=== PATIENT | female | born 1945 | race Caucasian/White ===

== ENCOUNTER 2016-12-14 01:11 | Inpatient (IN) | payer MEDICAID, MEDICARE ==
[~2016-12-14] VITALS: Ht 180.3 cm; Wt 131.5 kg
[2016-12-14 01:11] VITALS: BP 93/55; PULSE 76; RESP 18; TEMP 97.9; O2SAT 98
--- NOTE | 2016-12-14 01:11 | NUR ---
Patient to ER bed 6 to gown for evaluation. Side rails up. Report given to SG Verduzco.
--- NOTE | 2016-12-14 01:20 | NUR ---
Pt BIB EMS from [facility] for uncontrollable vaginal pain, pt stated she takes 2mg Dilaudid PO q4 hr for pain control, last dose at 0000, pain 04/17. Pt reported h/o radical vulvectomy on 11/13/16, vulvar cancer, and chronic pain. A&Ox4, denies SOB or chestpain, denies N/V/D. 16 Fr Goff catheter present upon arrival, pt stated she has the goff placed 3 weeks ago. Cellulitis noted at bilateral ankles. Appeared obese. Will continue to monitor
--- NOTE | 2016-12-14 01:21 | NUR ---
Pt states recent vulvectomy. Pt has excoriated, reddened, volvular area. Pt has goff in place, states "it feels like it is leaking and irritating my vagina". Pt's surgical wound extends toward rectal area.
--- NOTE | 2016-12-14 01:28 | NUR ---
MD camilo at bedside examining pt
[2016-12-14] MEDS ORDERED: metroNIDAZOLE 500 mg/NS 100 ML IV ONE (01:45)
[2016-12-14] MEDS ORDERED: NACL 0.9% 1,000 ML IV ONE (01:45)
[2016-12-14] MEDS ORDERED: HYDROmorphone 1 MG INJ. 1 MG/ML AMPUL IVP ONE (01:45)
[2016-12-14] MEDS ORDERED: HYDR2TAB7 PO (01:48)
[2016-12-14] MEDS ORDERED: CARV3.1246 PO ×2 (01:48→02:05)
[2016-12-14] MEDS ORDERED: MAGN400O4 PO (01:48)
[2016-12-14] MEDS ORDERED: BISA10SU8 RC (01:48)
[2016-12-14] MEDS ORDERED: DEXT1CAP3 PO (01:48)
[2016-12-14] MEDS ORDERED: POLY15DR56 OP (01:48)
--- NOTE | 2016-12-14 01:50 | NUR ---
# 16 FR Goff catheter with use of sterile technique. Immediate return of 20 cc yellow urine noted. Bedside drainage bag placed below level of bladder. Urine sample collected and sent to lab. Pt tolerated procedure well. Patient arrived with goff in place, changed due to standard of practice prior to admission.
[2016-12-14] MEDS ORDERED: BISACODYL 10 MG/SUPPOSITORY RC PRN (02:00)
[2016-12-14] MEDS ORDERED: NITROGLYCERIN 0.4 MG TAB.SUBL SL PRN (02:00)
[2016-12-14] MEDS ORDERED: TEARS ARTIFICIAL 15 ML DROPS OP PRN ×2 (02:00→07:55)
[2016-12-14] MEDS ORDERED: MILK OF MAGNESIA 30 ML UDC PO PRN (02:00)
[2016-12-14] MEDS ORDERED: IBUP-1969 PO (02:05)
[2016-12-14] MEDS ORDERED: DOCU-144 PO (02:05)
[2016-12-14] MEDS ORDERED: ASPI-1063 PO (02:05)
[2016-12-14] MEDS ORDERED: HYDR-1189 PO (02:05)
[2016-12-14] MEDS ORDERED: MULT-1117 PO (02:05)
[2016-12-14] MEDS ORDERED: DULO60CA41 PO (02:05)
[2016-12-14] MEDS ORDERED: GABA-531 PO (02:05)
[2016-12-14] MEDS ORDERED: CRAN450C PO (02:05)
[2016-12-14] MEDS ORDERED: LORA-258 PO (02:05)
[2016-12-14] MEDS ORDERED: TOLT1TAB2 PO (02:05)
[2016-12-14] MEDS ORDERED: VALS80TA25 PO (02:05)
[2016-12-14] MEDS ORDERED: NITR0.4T6 SL (02:05)
[2016-12-14] MEDS ORDERED: PRO40 PO (02:05)
--- NOTE | 2016-12-14 02:11 | NUR ---
Medication reconciliation completed with information provided by facility. Any prior medication reconciliation on file was reviewed and corrected.
[2016-12-14 02:20] LABS: BASOPHILS % (AUTO) 0.7 % (0.0-2.0); EOSINOPHILS # (AUTO) 0.5 K/uL (0.0-0.4); HEMOGLOBIN 9.4 g/dL (12.0-16.0); MEAN CORPUSCULAR HEMOGLOBIN 24 pg (27-31); MEAN CORPUSCULAR HGB CONC 32 % (32-36); MEAN CORPUSCULAR VOLUME 76 fL (79.0-98.0); MONOCYTES # (AUTO) 0.8 K/uL (0.0-1.0); MONOCYTES % (AUTO) 12.8 % (1.7-9.3); NEUTROPHILS # (AUTO) 2.9 K/uL (1.8-7.7); NEUTROPHILS % (AUTO) 46.5 % (40.0-70.0); PLATELET COUNT (AUTO) 191 K/uL (130-430); RED BLOOD CELL COUNT(AUTO) 3.84 MIL/uL (4.2-6.2); RED CELL DISTRIBUTION WIDTH 15.5 % (9.0-15.0); WHITE BLOOD COUNT (AUTO) 6.2 K/uL (4.8-10.8)
[2016-12-14 02:36] LABS: ANION GAP 1 (5-15); CHLORIDE 96 mmol/L (98-107); CREATININE 0.96 mg/dL (0.55-1.30); GLUCOSE 113 mg/dL (70-99); POTASSIUM 4.3 mmol/L (3.5-5.1); SODIUM SERUM 131 mmol/L (136-145); UREA NITROGEN, BLOOD 16 mg/dL (8-21)
[2016-12-14 02:41] LABS: ALANINE AMINOTRANSFERASE 58 U/L (12-78); ALBUMIN 2.7 g/dL (3.4-4.8); ASPARTATE AMINOTRANSFERASE 52 U/L (10-37); TOTAL BILIRUBIN 0.3 mg/dL (0.0-1.0); TOTAL PROTEIN, SERUM 7.5 g/dL (6.4-8.3)
[2016-12-14 02:47] LABS: BILIRUBIN,URINE NEGATIVE (NEGATIVE); BLOOD, URINE 1+ (NEGATIVE); CLARITY/URINE HAZY (CLEAR); COLOR,URINE YELLOW (YELLOW); GLUCOSE,URINE NEGATIVE (NEGATIVE); KETONES,URINE NEGATIVE (NEGATIVE); LEUKOCYTE ESTERASE ,URINE 3+ (NEGATIVE); NITRITE, URINE NEGATIVE (NEGATIVE); PROTEIN URINE TRACE (NEGATIVE); UROBILINOGEN,URINE 0.2 (0.2-1.0)
[2016-12-14 03:01] LABS: BACTERIA,URINE MODERATE /HPF (None Seen); MUCUS,URINE 1+ /LPF (None Seen)
--- NOTE | 2016-12-14 03:50 | NUR ---
ADMISSION: The patient, YANNI MERAZ, 71 y/o, F admitted by SRI MENSAH DO, was given written information regarding hospital policies, unit procedures and contact persons.
--- NOTE | 2016-12-14 03:55 | NUR ---
Patient will be admitted to care of . Admitted to Med Surg unit. Will go to room 111-A. Belongings list completed. Summary report printed. Report given to Yary RN.
[2016-12-14 04:00] VITALS: BP 119/56; PULSE 81; RESP 18; RESP 20; TEMP 97.6; O2SAT 94
[2016-12-14] MEDS: HYDROmorphone 2 MG/ML VIAL IVP PRN ×3 (05:10→14:17)
[2016-12-14] MEDS: LORazepam 1 MG TABLET PO PRN (05:10)
--- NOTE | 2016-12-14 06:30 | NUR ---
CLOSING NOTES NO S/S OF DISTRESS NOTED. WILL ENDORSE CARE TO DAY SHIFT NURSE. FALL PRECAUTIONS IN PLACE, CALL LIGHT WITHIN REACH.
--- NOTE | 2016-12-14 08:00 | NUR ---
INITIAL NOTE PT LAYING IN BED, RESTING, EASY TO AROUSE, ALERT AND ORIENTED X3, NO S/S OF DISTRESS, COMPLAINS OF PAIN 03/17 WILL FOLLOW UP WITH PAIN MEDICATION, VSS, IV TO LAC PATENT AND INTACT WITH FLUIDS INFUSING AT ORDERED RATE, NO S/S OF INFILTRATION NOTED, PT REORIENTED TO USE OF CALL LIGHT AND IT IS PLACED WITHIN REACH, SAFETY MEASURES IN PLACE, BED IN LOW POSITION AND LOCKED, WILL CONTINUE TO MONITOR.
[2016-12-14] MEDS ORDERED: [UNRECOGNIZED DRUG - OTHER] PO SCH (09:00)
[2016-12-14] MEDS ORDERED: QUINIDINE PO SCH (09:00)
[2016-12-14] MEDS ORDERED: DEXTROMETHORPHAN PO SCH (09:00)
[2016-12-14] MEDS ORDERED: NON-FORMULARY MEDICATION (Cranberry Fruit Concentrate (Cranberry) 450 MG) PO SCH (09:00)
[2016-12-14] MEDS: MULTIVITAMINS TAB 1 TABLET PO SCH ×2 (09:00→09:14)
[2016-12-14] MEDS: ASPIRIN 81 MG TABLET(ECOTRIN) PO SCH (09:14)
[2016-12-14] MEDS: PANTOPRAZOLE SODIUM 40 MG TAB PO SCH (09:14)
[2016-12-14] MEDS: DOCUSATE SODIUM 100 MG CAPSULE PO SCH ×2 (09:14→20:56)
[2016-12-14] MEDS: DULoxetine HCL 30 MG CAPSULE.DR (CYMBALTA) PO SCH (09:15)
[2016-12-14] MEDS: VALSARTAN 80 MG TABLET (DIOVAN) PO SCH (09:15)
[2016-12-14] MEDS: GABAPENTIN 300 MG CAPSULE PO SCH ×3 (09:16→20:55)
[2016-12-14] MEDS: CARVEDILOL 3.125 MG TABLET (COREG) PO SCH ×2 (09:16→20:56)
[2016-12-14] MEDS ORDERED: ACETAMINOPHEN 325 MG TABLET PO PRN (09:30)
[2016-12-14] MEDS ORDERED: DOCUSATE SODIUM 100 MG CAPSULE PO PRN (09:30)
[2016-12-14] MEDS ORDERED: POTASSIUM CHLORIDE 10 MEQ TAB.PRT.SR PO PRN (09:30)
[2016-12-14] MEDS ORDERED: MAGNESIUM SULFATE 50 ML IV PRN (09:30)
[2016-12-14] MEDS: NACL 0.9% 1,000 ML IV SCH ×2 (09:30→14:23)
[2016-12-14] MEDS ORDERED: ONDANSETRON HCL 4 MG/2 ML VIAL IVP PRN (09:30)
--- NOTE | 2016-12-14 09:30 | NUR ---
DR MENSAH AT BEDSIDE, ASSESSED PATIENT, PLAN OF CARE DISCUSSED, PATIENT VERBALIZED UNDERSTANDING, NEW ORDERS RECEIVED AND CARRIED OUT.
[2016-12-14 09:34] VITALS: BP 112/65; PULSE 79; RESP 18; TEMP 97.1; O2SAT 95
[2016-12-14] MEDS: OXYBUTYNIN CHLORIDE 5 MG TABLET PO SCH ×2 (10:51→20:56)
[2016-12-14] MEDS: LORazepam 2 MG/ML VIAL IVP PRN ×2 (10:59→20:55)
[2016-12-14] MEDS ORDERED: cefTRIAXone 1 GM in D5W 50 ML IV SCH (11:00)
--- NOTE | 2016-12-14 11:00 | NUR ---
PT NOTED TO BE ANXIOUS, REQUESTING ATIVAN IF IT IS TIME, ADMINISTERED ANXIETY MEDICATION, PT TOLERATED WELL, SAFETY MEASURES IN PLACE, BED ALARM ON, BED IN LOW POSITION AND LOCKED, WILL FOLLOW UP
[2016-12-14 12:00] VITALS: BP_SYST 101; BP_SYST 94; BP_DIAS 50; BP_DIAS 58; PULSE 68; PULSE 74; RESP 18; RESP 22; TEMP 96.9; TEMP 97.3; O2SAT 95; O2SAT 97
--- NOTE | 2016-12-14 12:00 | NUR ---
P.T. NOTES PATIENT REFUSED TO GET UP AND PARTICIPATE WITH P.T. IN SPITE OF SEVERAL ENCOURAGEMENTS GIVEN AND EXPLAINED THE BENEFITS OF THE OUT OF BED ACTIVITIES. STATES SHE IS TOO TIRED AND SLEEPY AND WOULD LIKE TO SLEEP INSTEAD. PATIENT STATES TO COME BACK @ 11:30-NOON & TO TRY IF SHE IS ABLE. INFORMED HER NURSE OF HER INITIAL REFUSAL. THIS CLINICIAN CAME BACK AT 12:00PM BUT PATIENT WAS SEEN ASLEEP, SNORING IN HER BED AND WAS HARD TO BE AWAKEN WHEN ATTEMPTED AGAIN. PLAN: WE'LL TRY AGAIN ON NEXT P.T. VISIT. PVEX2
--- NOTE | 2016-12-14 14:17 | NUR ---
PAIN MANAGEMENT PT COMPLAINT OF PAIN 04/17 LOCATED IN HER VAGINA, ADMINISTERED PAIN MEDICATION, PT TOLERATED WELL, NO RESTING, NO S/S OF DISTRESS, STATES PAIN IS NOW AT A TOLERABLE LEVEL, SAFETY MEASURES IN PLACE, WILL FOLLOW UP
--- NOTE | 2016-12-14 16:30 | NUR ---
ROUNDS PT SITTING UP IN BED, RESTING, STATES IT WAS THE FIRST DAY SHE WAS ABLE TO REST WELL, NEEDS ATTENDED TO, SAFETY MEASURES IN PLACE, WILL FOLLOW UP
[2016-12-14 18:15] VITALS: BP 128/78; PULSE 88; RESP 18; TEMP 98.2
--- NOTE | 2016-12-14 18:54 | NUR ---
CLOSING NOTE PT LAYING IN BED, NO S/S OF DISTRESS OR COMPLAINT OF PAIN AT THIS TIME, ALL NEEDS MET DURING SHIFT, IV TO LAC INTACT AND INFUSING FLUIDS AT ORDERED RATE, N S/S OF INFILTRATION NOTED, SAFETY MEASURES IN PLACE, CALL LIGHT WITHIN REACH, BED IN LOW POSITION AND LOCKED, WILL ENDORSE CARE TO FOLLOW IN SHIFT.
--- NOTE | 2016-12-14 20:00 | NUR ---
OPENING NOTE PATIENT RESTING COMFORTABLY IN SEMI-ALMODOVAR'S. NO SIGNS OR SYMPTOMS OF DISTRESS NOTED. IV INFUSING. BED IN LOWEST POSITION, BED ALARM ON, CALL LIGHT WITHIN REACH. WILL CONTINUE TO MONITOR.
[2016-12-14 20:22] VITALS: BP 111/67; PULSE 76; RESP 20; TEMP 98.4; O2SAT 95
[2016-12-14] MEDS: MORPHINE 2 MG/ML INJ. SYRINGE IVP PRN (20:55)
[2016-12-14] MEDS: HEPARIN SODIUM,PORCINE 5000 UNITS/ML VIAL SUBCUT SCH (20:58)
[2016-12-14] MEDS ORDERED: ZOLPIDEM TARTRATE 5 MG TABLET PO PRN (21:00)
--- NOTE | 2016-12-14 22:00 | NUR ---
ROUNDS PATIENT SLEEPING COMFORTABLY. VISIBLE RISE AND FALL OF CHEST NOTED. NO SIGNS OR SYMPTOMS OF ACUTE DISTRESS NOTED. IV INFUSING, NO SIGNS OF INFILTRATION. BED IN LOWEST POSITION, BED ALARM ON, CALL LIGHT WITHIN REACH. WILL CONTINUE TO MONITOR.
[2016-12-15 00:14] VITALS: BP 118/70; PULSE 68; RESP 20; TEMP 98.8; O2SAT 98
--- NOTE | 2016-12-15 02:00 | NUR ---
ROUNDS PATIENT IS ASLEEP. VISIBLE RISE AND FALL OF CHEST NOTED. NO ACUTE SIGNS OR SYMPTOMS OF DISTRESS NOTED. IV INFUSING, NO SIGNS OF INFILTRATION. BED IN LOWEST POSITION, BED ALARM ON, CALL LIGHT WITHIN REACH. WILL CONTINUE TO MONITOR.
[2016-12-15] MEDS: HYDROmorphone 2 MG/ML VIAL IVP PRN ×5 (02:52→17:31)
--- NOTE | 2016-12-15 04:00 | NUR ---
ROUNDS PATIENT SLEEPING WITH VISIBLE RISE AND FALL OF CHES. NO SIGNS OR SYMPTOMS OF ACUTE DISTRESS NOTED. BED IN LOWEST POSITION, BED ALARM ON, CALL LIGHT WITHIN REACH. WILL CONTINUE TO MONITOR.
[2016-12-15 05:10] VITALS: BP 116/73; PULSE 83; RESP 18; TEMP 98.6; O2SAT 97
--- NOTE | 2016-12-15 06:15 | NUR ---
ROUNDS PATIENT AWAKE AND STATING SHE IS IN PAIN. PATIENT RECEIVED MEDICATION PER ORDERS. WILL REASSESS. IV INFUSING, NO SIGNS OF INFILTRATION. BED IN LOWEST POSITION, BED ALARM ON, CALL LIGHT WITHIN REACH. WILL CONTINUE TO MONITOR.
--- NOTE | 2016-12-15 06:35 | NUR ---
CLOSING NOTES PATIENT IS RESTING COMFORTABLY. IV INFUSING. NO ACUTE SIGNS OR SYMPTOMS OF DISTRESS NOTED. BED IN LOWEST POSITION, BED ALARM ON, CALL LIGHT WITHIN REACH. WILL ENDORSE CARE TO DAY SHIFT NURSE.
[2016-12-15 07:20] LABS: BASOPHILS % (AUTO) 0.5 % (0.0-2.0); EOSINOPHILS # (AUTO) 0.3 K/uL (0.0-0.4); EOSINOPHILS % (AUTO) 7.5 % (0.0-4.0); HEMATOCRIT 29.1 % (36-48); HEMOGLOBIN 8.9 g/dL (12.0-16.0); LYMPHOCYTES # (AUTO) 1.3 K/uL (1.0-5.5); LYMPHOCYTES % (AUTO) 28.5 % (20.5-51.5); MEAN CORPUSCULAR HEMOGLOBIN 23 pg (27-31); MEAN CORPUSCULAR HGB CONC 31 % (32-36); MEAN CORPUSCULAR VOLUME 76 fL (79.0-98.0); MONOCYTES # (AUTO) 0.5 K/uL (0.0-1.0); NEUTROPHILS # (AUTO) 2.4 K/uL (1.8-7.7); NEUTROPHILS % (AUTO) 53.5 % (40.0-70.0); PLATELET COUNT (AUTO) 177 K/uL (130-430); RED BLOOD CELL COUNT(AUTO) 3.81 MIL/uL (4.2-6.2); RED CELL DISTRIBUTION WIDTH 15.3 % (9.0-15.0); WHITE BLOOD COUNT (AUTO) 4.5 K/uL (4.8-10.8)
--- NOTE | 2016-12-15 07:20 | NUR ---
initial notes: pt awake, alert and oriented. i.v. access patent but keep on beeping due to pt frequent folding her hand. call light within reach. report received at bedside.
[2016-12-15 07:31] LABS: ANION GAP 0 (5-15); CALCIUM 8.7 mg/dL (8.4-11.0); CHLORIDE 97 mmol/L (98-107); CREATININE 0.86 mg/dL (0.55-1.30); GLUCOSE 100 mg/dL (70-99); SODIUM SERUM 132 mmol/L (136-145); UREA NITROGEN, BLOOD 14 mg/dL (8-21)
[2016-12-15 08:00] VITALS: BP 104/60; PULSE 78; RESP 16; TEMP 96.6; O2SAT 96
[2016-12-15] MEDS ORDERED: cefTRIAXone 1 GM in D5W 50 ML IV SCH (09:00)
[2016-12-15] MEDS: GABAPENTIN 300 MG CAPSULE PO SCH ×3 (09:11→21:23)
[2016-12-15] MEDS: DULoxetine HCL 30 MG CAPSULE.DR (CYMBALTA) PO SCH (09:11)
[2016-12-15] MEDS: ASPIRIN 81 MG TABLET(ECOTRIN) PO SCH (09:11)
[2016-12-15] MEDS: CARVEDILOL 3.125 MG TABLET (COREG) PO SCH ×2 (09:12→21:24)
[2016-12-15] MEDS: VALSARTAN 80 MG TABLET (DIOVAN) PO SCH (09:13)
[2016-12-15] MEDS: DOCUSATE SODIUM 100 MG CAPSULE PO SCH ×2 (09:13→21:23)
[2016-12-15] MEDS: MULTIVITAMINS TAB 1 TABLET PO SCH (09:13)
[2016-12-15] MEDS: PANTOPRAZOLE SODIUM 40 MG TAB PO SCH (09:13)
[2016-12-15] MEDS: HEPARIN SODIUM,PORCINE 5000 UNITS/ML VIAL SUBCUT SCH ×2 (09:17→21:23)
[2016-12-15] MEDS: MORPHINE 2 MG/ML INJ. SYRINGE IVP PRN (09:23)
[2016-12-15] MEDS: OXYBUTYNIN CHLORIDE 5 MG TABLET PO SCH ×2 (10:30→21:00)
[2016-12-15] MEDS: NACL 0.9% 1,000 ML IV SCH ×2 (11:20→18:51)
--- NOTE | 2016-12-15 11:42 | NUR ---
rounds: pt sleeping. stable.
[2016-12-15 12:49] VITALS: BP 115/54; PULSE 76; RESP 16; TEMP 97.4; O2SAT 97
--- NOTE | 2016-12-15 14:00 | NUR ---
MRSA: pt positive for MRSA nares and urine. Informed pt will be placed in isolation and verbalized understanding.
[2016-12-15] MEDS: LORazepam 2 MG/ML VIAL IVP PRN ×2 (14:40→19:50)
[2016-12-15 17:19] VITALS: BP 114/54; PULSE 80; RESP 18; TEMP 99; O2SAT 94
--- NOTE | 2016-12-15 17:30 | NUR ---
rounds: pt eating dinner. no distress noted.
[2016-12-15] MEDS: MUPIROCIN 2% TOPICAL OINTMENT 22 GM TP SCH ×2 (17:37→21:00)
[2016-12-15] MEDS: VANCOMYCIN HCL 1,500 MG in NS 250 ML IV SCH (17:38)
--- NOTE | 2016-12-15 18:00 | NUR ---
rounds: pt eating dinner with feeding assist with COMPUTER SYSTEMS ENGINEER. no distress noted. Addendum: 12/15/16 at 1825 by wGen Whipple RN wrong chart.
--- NOTE | 2016-12-15 18:45 | NUR ---
closing notes: pt on bed resting. stable. needs attended. call light within reach. report will be given to production shift supervisor.
--- NOTE | 2016-12-15 19:20 | NUR ---
OPENING NOTES REPORT RECEIVED FROM DAY SHIFT NURSE. PATIENT IS SITTING UP WACTCHING TELEVISION, IN GOOD SPIRITS. IV IS PATENT AND INFUSING VANCOMYOCIN. NO S/S OF DISTRESS OR ADVERSE REACTION. PATIENT TOLERATING WELL. LUNGS SOUNDS CRACKLES, WILL NOTIFY DR. MENSAH. BED IN LOWEST POSITION, BED ALARM ON, CALL LIGHT WITHIN REACH.WILL CONTINUE TO MONITOR FREQUENTLY.
[2016-12-15 19:41] VITALS: BP 124/94; PULSE 84; RESP 24; TEMP 97.4; O2SAT 95
--- NOTE | 2016-12-15 20:35 | NUR ---
CALLED DR MENSAH CALLED AND SPOKE TO DR MENSAH TO ADVISE THAT CRACKLES WERE HEARD IN PATIENTS LUNGS AND O2 SATURATION WAS DECREASING. ORDERED D/C FLUIDS, SALINE LOCK IV, AND 40 MG OF LASIX IV ONE TIME.
--- NOTE | 2016-12-15 20:39 | NUR ---
FLUIDS D/C PER TELEPHONE ORDER DR. MENSAH.
[2016-12-15] MEDS ORDERED: FUROSEMIDE 40 MG/4 ML VIAL IVP ONE (20:45)
[2016-12-16 00:20] VITALS: BP 118/72; PULSE 79; RESP 18; TEMP 98.4; O2SAT 94
--- NOTE | 2016-12-16 00:44 | NUR ---
ROUNDS PATIENT IS SLEEPING IN SEMI-ALMODOVAR'S POSITION, WITH VISIBLE RISE AND FALL OF CHEST NOTED. NO SIGNS OR SYMPTOMS OF ACUTE DISTRESS NOTED. IV PATENT AND INFUSING. BED IN LOWEST POSITION, BED ALARM ON, CALL LIGHT WITHIN REACH. WILL CONTINUE TO MONITOR.
--- NOTE | 2016-12-16 03:41 | NUR ---
ROUNDS PATIENT IS SLEEPING COMFORTABLY WITH VISIBLE RISE AND FALL OF CHEST NOTED. NO SIGNS OR SYMPTOMS OF ACUTE DISTRESS NOTED. BREATHING UNLABORED AND EVEN. BED IN LOWEST POSITION, BED ALARM ON, CALL LIGHT WITHIN REACH. WILL CONTINUE TO MONITOR.
[2016-12-16 04:42] VITALS: BP 148/68; PULSE 90; RESP 16; TEMP 99; O2SAT 90
[2016-12-16] MEDS: VANCOMYCIN HCL 1,500 MG in NS 250 ML IV SCH ×2 (05:00→15:31)
[2016-12-16] MEDS: MORPHINE 2 MG/ML INJ. SYRINGE IVP PRN (05:04)
--- NOTE | 2016-12-16 05:07 | NUR ---
ROUNDS AT BEDSIDE WITH PATIENT COMPLAINING OF PAIN. MEDICATED PATIENT PER ORDERS. ASSISTED IN BATHING PATIENT WITH WAITER/WAITRESS TOURIST CLASS. LUNGS SOUNDS ARE NOW CLEAR. IV RUNNING ANTIBIOTICS, NO SIGNS OF INFILTRATION. FALL PRECAUTIONS IN PLACE. WILL CONTINUE TO MONITOR.
[2016-12-16 07:44] LABS: BASOPHILS % (AUTO) 0.4 % (0.0-2.0); EOSINOPHILS # (AUTO) 0.2 K/uL (0.0-0.4); EOSINOPHILS % (AUTO) 3.9 % (0.0-4.0); HEMATOCRIT 27.2 % (36-48); HEMOGLOBIN 8.6 g/dL (12.0-16.0); LYMPHOCYTES # (AUTO) 1.4 K/uL (1.0-5.5); LYMPHOCYTES % (AUTO) 27.1 % (20.5-51.5); MEAN CORPUSCULAR HEMOGLOBIN 24 pg (27-31); MEAN CORPUSCULAR HGB CONC 32 % (32-36); MEAN CORPUSCULAR VOLUME 75 fL (79.0-98.0); MONOCYTES # (AUTO) 0.6 K/uL (0.0-1.0); MONOCYTES % (AUTO) 11.6 % (1.7-9.3); PLATELET COUNT (AUTO) 157 K/uL (130-430); RED BLOOD CELL COUNT(AUTO) 3.62 MIL/uL (4.2-6.2); WHITE BLOOD COUNT (AUTO) 5.2 K/uL (4.8-10.8)
--- NOTE | 2016-12-16 07:57 | NUR ---
CLOSING NOTES REPORT GIVEN AT BESIDE TO DAY SHIFT NURSE. PATIENT IS SLEEPING COMFORTABLY WITH VISIBLE RISE AND FALL OF CHEST NOTED. NO ACUTE S/S OF DISTRESS AT THIS TIME. LUNGS SOUNDS ARE NOW CLEAR. IV RUNNING ANTIBIOTICS, NO SIGNS OF INFILTRATION AT SITE. FALL PRECAUTIONS IN PLACE. WILL ENDORSE CARE TO DAY SHIFT NURSE.
--- NOTE | 2016-12-16 08:00 | NUR ---
OPENING NOTES REPORT RECEIVED AT BEDSIDE. PT ALERT AND ORIENTED X4. VS ARE STABLE AND LUNGS ARE CLEAR IN ALL LOBES, BUT SHE STATES SHE IS ANXIOUS AND REQUESTED HER PRN ANTIANXIETY MED. WILL CONTINUE TO MONITOR
[2016-12-16 08:08] LABS: ANION GAP 1 (5-15); CALCIUM 8.6 mg/dL (8.4-11.0); CHLORIDE 98 mmol/L (98-107); CREATININE 0.91 mg/dL (0.55-1.30); GLUCOSE 110 mg/dL (70-99); POTASSIUM 4.6 mmol/L (3.5-5.1); SODIUM SERUM 134 mmol/L (136-145); UREA NITROGEN, BLOOD 15 mg/dL (8-21)
[2016-12-16] MEDS: HYDROmorphone 2 MG/ML VIAL IVP PRN ×3 (08:58→19:48)
[2016-12-16] MEDS: GABAPENTIN 300 MG CAPSULE PO SCH ×3 (09:02→21:18)
[2016-12-16] MEDS: VALSARTAN 80 MG TABLET (DIOVAN) PO SCH (09:03)
[2016-12-16] MEDS: MULTIVITAMINS TAB 1 TABLET PO SCH (09:04)
[2016-12-16] MEDS: ASPIRIN 81 MG TABLET(ECOTRIN) PO SCH (09:04)
[2016-12-16] MEDS: DOCUSATE SODIUM 100 MG CAPSULE PO SCH ×2 (09:05→21:18)
[2016-12-16] MEDS: CARVEDILOL 3.125 MG TABLET (COREG) PO SCH ×2 (09:05→21:19)
[2016-12-16] MEDS: PANTOPRAZOLE SODIUM 40 MG TAB PO SCH (09:05)
[2016-12-16] MEDS: DULoxetine HCL 30 MG CAPSULE.DR (CYMBALTA) PO SCH (09:06)
[2016-12-16] MEDS: LORazepam 1 MG TABLET PO PRN ×2 (09:06→21:20)
[2016-12-16] MEDS: MUPIROCIN 2% TOPICAL OINTMENT 22 GM TP SCH ×2 (09:10→22:25)
[2016-12-16] MEDS: OXYBUTYNIN CHLORIDE 5 MG TABLET PO SCH ×2 (09:21→22:27)
[2016-12-16] MEDS: HEPARIN SODIUM,PORCINE 5000 UNITS/ML VIAL SUBCUT SCH ×2 (09:27→21:21)
--- NOTE | 2016-12-16 09:37 | NUR ---
Nutrition Update Benji Scale 12 noted. Pt admitted for UTI. Diet: regular BMI: 40.6 kg/m2 RD to follow per nutrition care standards.
--- NOTE | 2016-12-16 10:00 | NUR ---
ROUNDS PT RESTING IN BED AND IS COMPLAINING OF PAIN. PRN ANALGESICS ADMINISTERED, WILL FOLLOW UP ON EFFECTIVENESS OF TREATMENT. BED IN LOWEST POSITION, CALL LIGHT WITHIN REACH, AND BED ALARM SET
[2016-12-16 12:00] VITALS: BP 104/52; PULSE 83; RESP 18; TEMP 99.7; O2SAT 94
--- NOTE | 2016-12-16 12:00 | NUR ---
PT SLEEPING IN BED. BED IN LOWEST POSITION, CALL LIGHT WITHIN REACH, AND BED ALARM SET
[2016-12-16 12:40] VITALS: Ht 180.3 cm; Wt 131.5 kg
--- NOTE | 2016-12-16 14:00 | NUR ---
ROUNDS PT STILL SLEEPING AND APPEARS COMFORTABLE
[2016-12-16] MEDS: LORazepam 2 MG/ML VIAL IVP PRN ×2 (14:08→21:35)
[2016-12-16] MEDS: NACL 0.9% 1,000 ML IV SCH (14:08)
[2016-12-16 16:00] VITALS: BP 136/96; PULSE 76; RESP 18; TEMP 97.8; O2SAT 92
--- NOTE | 2016-12-16 16:00 | NUR ---
ROUNDS PT IS AWAKE AND LISTENING TO MUSIC. I'VE NOTICED SHE IS SLOW TO ORIENT BUT IS A&O X 4 ONCE I TALK TO HER FOR A FEW MINUTES.
--- NOTE | 2016-12-16 19:00 | NUR ---
CLOSING NOTE PT CURLED UP IN BED AND IS COMPLAINING OF PAIN. REPORT ENDORSED AT BEDSIDE, AND NIGHT NURSE WILL FOLLOW-UP WITH PRN ANALGESICS
[2016-12-16 19:48] VITALS: BP 114/74; PULSE 93; RESP 22; TEMP 99.4; O2SAT 93
--- NOTE | 2016-12-16 20:15 | NUR ---
Initial note A/O x 3, forgetful at times. No SOB, no chest pain, c/o general body ache, Dilaudid IVP given, pain decreased to 3/10. 2L O2 via NC. Clear lung sounds, active bowel sounds. Skin warm to touch, IV at L AC, patent, free of infection or infiltration. Contact isolation for MRSA-nares. F/C in place, about 100 ml clear yellow urine in the collecting bag. Needed one to two persons assisted for position change. Call light within reach, bed alarm on, bed at lowest position, will continue to monitor patient.
--- NOTE | 2016-12-16 22:15 | NUR ---
Rounds Resting in bed. No SOB, no chest pain, no grimacing. Ativan IVP given earlier. 2L O2 via NC. IV at L AC, patent, free of infection or infiltration. Contact isolation for MRSA-nares. F/C in place. Call light within reach, bed alarm on, bed at lowest position, will continue to monitor patient.
[2016-12-17] VITALS: BP 131/63; PULSE 89; RESP 18; TEMP 98; O2SAT 94
--- NOTE | 2016-12-17 00:25 | NUR ---
Rounds Resting/sleeping in bed. No SOB, no chest pain, no grimacing. 2L O2 via NC. IV at L AC, patent, free of infection or infiltration. Contact isolation for MRSA-nares. F/C in place. Call light within reach, bed alarm on, bed at lowest position, will continue to monitor patient.
--- NOTE | 2016-12-17 02:00 | NUR ---
Rounds Resting/sleeping in bed. No SOB, no chest pain, no grimacing. 2L O2 via NC. F/C in place. Call light within reach, bed alarm on, bed at lowest position, will continue to monitor patient.
[2016-12-17 04:00] VITALS: BP 117/53; PULSE 84; RESP 17; TEMP 98; O2SAT 95
[2016-12-17] MEDS: VANCOMYCIN HCL 1,500 MG in NS 250 ML IV SCH ×2 (04:03→16:00)
--- NOTE | 2016-12-17 04:30 | NUR ---
Rounds and IV reinsertion Resting/sleeping in bed. No SOB, no chest pain, no grimacing. 2L O2 via NC. F/C in place. IV at L AC dislodged. Started a new IV at R hand #22 with good blood return. Patient tolerated well, Vanco IV ongoing. DC old IV, IV catheter intact, no s/s of infection or infiltration. Call light within reach, bed alarm on, bed at lowest position, will continue to monitor patient.
--- NOTE | 2016-12-17 06:45 | NUR ---
Closing note Resting/sleeping in bed. No SOB, no chest pain, no grimacing. 2L O2 via NC. F/C in place. Call light within reach, bed alarm on, bed at lowest position, will give report to incoming nurse.
[2016-12-17 07:16] LABS: BASOPHILS % (AUTO) 0.2 % (0.0-2.0); EOSINOPHILS # (AUTO) 0.2 K/uL (0.0-0.4); EOSINOPHILS % (AUTO) 3.4 % (0.0-4.0); HEMATOCRIT 26.7 % (36-48); HEMOGLOBIN 8.2 g/dL (12.0-16.0); LYMPHOCYTES # (AUTO) 1.3 K/uL (1.0-5.5); LYMPHOCYTES % (AUTO) 23.4 % (20.5-51.5); MEAN CORPUSCULAR HEMOGLOBIN 24 pg (27-31); MEAN CORPUSCULAR HGB CONC 31 % (32-36); MEAN CORPUSCULAR VOLUME 76 fL (79.0-98.0); MONOCYTES # (AUTO) 0.6 K/uL (0.0-1.0); MONOCYTES % (AUTO) 11.4 % (1.7-9.3); NEUTROPHILS # (AUTO) 3.5 K/uL (1.8-7.7); NEUTROPHILS % (AUTO) 61.6 % (40.0-70.0); PLATELET COUNT (AUTO) 163 K/uL (130-430); RED CELL DISTRIBUTION WIDTH 15.8 % (9.0-15.0); WHITE BLOOD COUNT (AUTO) 5.6 K/uL (4.8-10.8)
--- NOTE | 2016-12-17 07:30 | NUR ---
OPENING NOTES REPORT RECEIVED AT BEDSIDE BY TYREL. PT A$O X 3 (COULD NOT REMEMBER THE DAY OF THE WEEK) VS STABLE, BUT PATIENT IS ANXIOUS AND IN PAIN. IV PATENT, DRESSING DRY AND INTACT. I WILL ADMINISTER PRN ANTI-ANXIETY AND ANALGESIC GILLIAN
[2016-12-17 07:38] LABS: ANION GAP -2 (5-15); CALCIUM 8.4 mg/dL (8.4-11.0); CHLORIDE 98 mmol/L (98-107); CREATININE 0.84 mg/dL (0.55-1.30); GLUCOSE 117 mg/dL (70-99); POTASSIUM 4.3 mmol/L (3.5-5.1); SODIUM SERUM 130 mmol/L (136-145); UREA NITROGEN, BLOOD 18 mg/dL (8-21)
[2016-12-17] MEDS: HYDROmorphone 2 MG/ML VIAL IVP PRN ×3 (08:59→19:52)
[2016-12-17] MEDS: LORazepam 2 MG/ML VIAL IVP PRN (08:59)
[2016-12-17] MEDS: HEPARIN SODIUM,PORCINE 5000 UNITS/ML VIAL SUBCUT SCH ×2 (09:00→21:34)
[2016-12-17] MEDS: MULTIVITAMINS TAB 1 TABLET PO SCH (09:00)
[2016-12-17] MEDS: PANTOPRAZOLE SODIUM 40 MG TAB PO SCH (09:11)
[2016-12-17] MEDS: GABAPENTIN 300 MG CAPSULE PO SCH ×3 (09:11→21:31)
[2016-12-17] MEDS: CARVEDILOL 3.125 MG TABLET (COREG) PO SCH ×2 (09:11→21:00)
[2016-12-17] MEDS: DULoxetine HCL 30 MG CAPSULE.DR (CYMBALTA) PO SCH (09:12)
[2016-12-17] MEDS: VALSARTAN 80 MG TABLET (DIOVAN) PO SCH (09:12)
[2016-12-17] MEDS: OXYBUTYNIN CHLORIDE 5 MG TABLET PO SCH ×2 (09:13→21:39)
[2016-12-17] MEDS: DOCUSATE SODIUM 100 MG CAPSULE PO SCH ×2 (09:13→21:31)
[2016-12-17] MEDS: ASPIRIN 81 MG TABLET(ECOTRIN) PO SCH (09:13)
--- NOTE | 2016-12-17 10:00 | NUR ---
ROUNDS PT SLEEPING. BED IN LOWEST POSITION, BED ALARM SET, AND CALL LIGHT IS WITHIN REACH
[2016-12-17] MEDS: MUPIROCIN 2% TOPICAL OINTMENT 22 GM TP SCH ×2 (11:13→21:41)
[2016-12-17 12:00] VITALS: BP 101/53; PULSE 78; RESP 18; TEMP 97.2; O2SAT 94
--- NOTE | 2016-12-17 12:00 | NUR ---
ROUNDS PT STILL SLEEPING, BREATHING DEEP AND REGULAR. FALL PROTOCOL IN PLACE
--- NOTE | 2016-12-17 13:37 | NUR ---
Dr Harris paged for new consult
--- NOTE | 2016-12-17 14:00 | NUR ---
ROUNDS PT AWAKE BUT STILL SEEMS DROWSY. SHE SAYS SHE IS NOT IN PAIN. SHE DIDN'T EAT ANY OF HER LLUNCH, SO I LEFT IT AT BEDSIDE
--- NOTE | 2016-12-17 15:20 | NUR ---
BEDDING CHANGE/WOUND CARE PERFORMED
[2016-12-17 16:00] VITALS: BP 100/53; PULSE 70; RESP 18; TEMP 97.6; O2SAT 96
--- NOTE | 2016-12-17 16:00 | NUR ---
ROUNDS PT SLEEPING IN BED, BREATHING IS REGULAR. BED IS IN LOWEST POSITION, BED ALARM SET, AND CALL LIGHT AND PHONE IS WITHIN REACH
--- NOTE | 2016-12-17 16:30 | NUR ---
Wound Evaluation Attempted: Patient refused, preferred a female.
--- NOTE | 2016-12-17 17:44 | NUR ---
Wound care Patient wound picture taken. Patient has wound on the vagina, left side. small amount of tachy bloody drainage. cleaned with NS, pat dry, applied petroleum gauze and a foam dressing. Applied barrier cream to the abdominal folds which are intact at this time. Ceullo catheter care also done at this time.
--- NOTE | 2016-12-17 18:00 | NUR ---
ROUNDS PT IS IN BED, DROWSY. VITALS ARE STABLE AND SHE IS EATING DINNER.
--- NOTE | 2016-12-17 18:00 | NUR ---
WOUND EVALUATION: Wound Consult received from Dr. Morfin. Thank you, Dr. Morfin, for the consult. Patient received in a [place] Bed with a mattress, awake, alert, and oriented. Patient is unable to turn independently. Benji Score is a 14. Past Medical History: history of Vulvovaginal Cancer, history of recent resection, Overactive Bladder, Opiate Dependence, Chronic Pain, and Obesity. Recent Labs: WBC 5.6, RBC 3.50, Hgb 8.2, Hct 26.7, Na 130, Gluc 117, Alb 2.7. Intrinsic factors that delay wound healing: Vulvovaginal Cancer, Hypoalbuminemia. Extrinsic factors that delay wound healing: Decreased mobility. Microbiology: Blood Culture in progress. MRSA Screen positive. Vaginal wound culture in progress. Wound Assessment: 1) Right Vaginal Labial Area: Surgical wound (from a Vulvectomy), present on admission. Wound bed is 100% red tissue. No odor, scant sanguineous drainage. Paige-wound intact. Recommend: Cleanse wound with normal saline. Place moisture barrier cream onto paige-wound. Put Oil Emulsion dressing onto wound bed. Cover with non-adhesive foam dressing. Perform wound care daily, and as needed for dressing soiling or dislodgement. 2) Abdominal Folds: Moisture associated redness, present on admission. Recommend: Cleanse site with mild soap and water. Pat dry. Place moisture barrier cream onto involved areas. Perform site care qid, and as needed. Also recommend: Reposition patient every 2 hours with pillow support and off-load pressure areas with pillows for pressure re-distribution. Offload, elevate and float bilateral heels with pillows. Perform skin care and monitor skin integrity Q shift. Use moisture barrier cream on buttocks and other moisture susceptible areas QID and as needed for soiling. Addendum: 12/17/16 at 2003 by Lee Whitley RN Assessment provided by SG Hahn.
--- NOTE | 2016-12-17 19:00 | NUR ---
CLOSING NOTES PT IN BED, APPEARS DROWSY AND HAS NOT FINISHED HER DINNER. VITALS STABLE, REPORT ENDORSED TO NATI AT BEDSIDE.
[2016-12-17 19:57] VITALS: BP 97/50; PULSE 74; RESP 17; TEMP 97.8; O2SAT 95
--- NOTE | 2016-12-17 20:00 | NUR ---
Initial note A/O x 3, no SOB no chest pain, c/o vagina pain, Dilaudid IVP given. Skin warm to touch. IV at R hand, patent, free of infection or infiltration. 2L O2 via NC. Clear lung sounds, active bowel sounds. F/C in place, about 50 ml elizabeth urine noted. Needed 1-2 persons assistance for reposition. Contact isolation for MRSA-nares. Call light within reach, bed at lowest position, bed alarm on, will continue to monitor patient.
--- NOTE | 2016-12-17 22:15 | NUR ---
Rounds Resting/sleeping in bed, no SOB no chest pain, no grimacing. Skin warm to touch. IV at R hand, patent, 2L O2 via NC, F/C in place, Contact isolation for MRSA-nares. Call light within reach, bed at lowest position, bed alarm on, will continue to monitor patient.
[2016-12-17 23:30] VITALS: BP 105/62; PULSE 75; RESP 20; TEMP 96.8; O2SAT 99
--- NOTE | 2016-12-18 00:15 | NUR ---
Rounds Sleeping in bed, no SOB no chest pain, no grimacing. Skin warm to touch. IV at R hand, 2L O2 via NC, F/C in place, Contact isolation for MRSA-nares. Call light within reach, bed at lowest position, bed alarm on, will continue to monitor patient.
[2016-12-18] MEDS ORDERED: VANCOMYCIN HCL 1,000 MG in NS 250 ML IV SCH (04:00)
[2016-12-18 04:12] VITALS: BP 131/72; PULSE 82; RESP 20; TEMP 98.2; O2SAT 96
[2016-12-18] MEDS: HYDROmorphone 2 MG/ML VIAL IVP PRN ×2 (04:18→08:19)
--- NOTE | 2016-12-18 04:30 | NUR ---
Rounds Resting in bed, no SOB no chest pain, c/o vagina pain, Dilaudid IVP given. C/o constipation, Dulcolax MI given. Skin warm to touch. IV at R hand, 2L O2 via NC, F/C in place. Contact isolation for MRSA-nares. Call light within reach, bed at lowest position, bed alarm on, will continue to monitor patient.
--- NOTE | 2016-12-18 06:00 | NUR ---
Rounds and wound care Resting in bed, no SOB no chest pain, c/o vagina pain, Morphine IVP given. Skin warm to touch. Wound care performed as ordered. Patient tolerated well. IV at R hand, 2L O2 via NC, F/C in place. Contact isolation for MRSA-nares. Call light within reach, bed at lowest position, bed alarm on, will continue to monitor patient.
[2016-12-18] MEDS: MORPHINE 2 MG/ML INJ. SYRINGE IVP PRN ×2 (06:15→11:56)
[2016-12-18 06:57] LABS: BASOPHILS % (AUTO) 0.4 % (0.0-2.0); EOSINOPHILS # (AUTO) 0.4 K/uL (0.0-0.4); EOSINOPHILS % (AUTO) 6.4 % (0.0-4.0); HEMATOCRIT 27.3 % (36-48); HEMOGLOBIN 8.5 g/dL (12.0-16.0); LYMPHOCYTES # (AUTO) 1.1 K/uL (1.0-5.5); LYMPHOCYTES % (AUTO) 16.9 % (20.5-51.5); MEAN CORPUSCULAR HEMOGLOBIN 24 pg (27-31); MEAN CORPUSCULAR HGB CONC 31 % (32-36); MEAN CORPUSCULAR VOLUME 77 fL (79.0-98.0); MONOCYTES # (AUTO) 0.7 K/uL (0.0-1.0); MONOCYTES % (AUTO) 11.6 % (1.7-9.3); NEUTROPHILS # (AUTO) 4.1 K/uL (1.8-7.7); NEUTROPHILS % (AUTO) 64.7 % (40.0-70.0); PLATELET COUNT (AUTO) 148 K/uL (130-430); RED BLOOD CELL COUNT(AUTO) 3.56 MIL/uL (4.2-6.2); RED CELL DISTRIBUTION WIDTH 15.6 % (9.0-15.0); WHITE BLOOD COUNT (AUTO) 6.3 K/uL (4.8-10.8)
[2016-12-18 07:42] LABS: CALCIUM 8.7 mg/dL (8.4-11.0); CREATININE 1.39 mg/dL (0.55-1.30); GLUCOSE 113 mg/dL (70-99); POTASSIUM 4.4 mmol/L (3.5-5.1); SODIUM SERUM 132 mmol/L (136-145); UREA NITROGEN, BLOOD 21 mg/dL (8-21)
--- NOTE | 2016-12-18 07:45 | NUR ---
Closing note and wound care Patient had another BM. Wound care performed as ordered. Patient tolerated well. Patient resting in bed. IV at R hand, 2L O2 via NC, F/C in place. Contact isolation for MRSA-nares. Call light within reach, bed at lowest position, bed alarm on. Report given to the incoming nurse.
[2016-12-18 08:00] VITALS: BP 125/68; PULSE 83; RESP 17; TEMP 96.3; O2SAT 99
--- NOTE | 2016-12-18 08:00 | NUR ---
AM NOTES PT IN BED AWAKE, ALERT AND ORIENTED. COMPLAIN OF GENERALIZED PAIN MOST ON HER BUTTOM. REPOSITIONED FOR COMFORT. NO DISTRESS NOTED. IVL. KAY CATH DRAINING YELLOW URINE. UNABLE TO AMBULATE. WORK WITH PHYSICAL THERAPY. SAFETY PRECAUTION OBSERVED. MAINTAIN ON CONTACT ISOLATION FOR MRSA NARES. CALL LIGHT IN REACH. WILL MONITOR.
[2016-12-18 08:20] LABS: ANION GAP < 3 (5-15); CHLORIDE 98 mmol/L (98-107)
--- NOTE | 2016-12-18 08:51 | NUR ---
Nutrition Note Nutrition Consult (Wound) received 12/17/162006. Pt was seen and assessed by RD on 12/16/16. Please refer to Nutrition Assessment for details. RD to continue to follow per nutrition care standards.
[2016-12-18] MEDS: PANTOPRAZOLE SODIUM 40 MG TAB PO SCH (09:06)
[2016-12-18] MEDS: DULoxetine HCL 30 MG CAPSULE.DR (CYMBALTA) PO SCH (09:06)
[2016-12-18] MEDS: GABAPENTIN 300 MG CAPSULE PO SCH ×2 (09:07→14:14)
[2016-12-18] MEDS: ASPIRIN 81 MG TABLET(ECOTRIN) PO SCH (09:08)
[2016-12-18] MEDS: VALSARTAN 80 MG TABLET (DIOVAN) PO SCH (09:08)
[2016-12-18] MEDS: MULTIVITAMINS TAB 1 TABLET PO SCH (09:08)
[2016-12-18] MEDS: DOCUSATE SODIUM 100 MG CAPSULE PO SCH (09:09)
[2016-12-18] MEDS: CARVEDILOL 3.125 MG TABLET (COREG) PO SCH (09:09)
[2016-12-18] MEDS: HEPARIN SODIUM,PORCINE 5000 UNITS/ML VIAL SUBCUT SCH (09:10)
[2016-12-18] MEDS: OXYBUTYNIN CHLORIDE 5 MG TABLET PO SCH (09:11)
[2016-12-18] MEDS: MUPIROCIN 2% TOPICAL OINTMENT 22 GM TP SCH (09:11)
--- NOTE | 2016-12-18 10:00 | NUR ---
AM NOTES RESTING IN BED. NO DISTRESS NOTED. REPOSITIONED FOR COMFORT.
[2016-12-18 12:00] VITALS: BP 131/65; PULSE 80; RESP 18; TEMP 98; O2SAT 91
[2016-12-18] MEDS ORDERED: NITROFURANTOIN MACROCRYSTAL 50 MG CAPSULE PO SCH (12:00)
--- NOTE | 2016-12-18 12:00 | NUR ---
NOTES DR. MENSAH MADE ROUNDS AND ORDERED TO D/C PT BACK TO SNF. OKAY TO KEEP ELIZA IN.
--- NOTE | 2016-12-18 12:17 | NUR ---
DISCHARGE PLANNING DC order back to SNF. Faxed SNF referral to [phone]. will follow up on bed assignment. Addendum: 12/18/16 at 1541 by Kacey Dinh DP Returned call to Julissa in admitting at [facility] patient assigned to room 16A RN to report [phone] station 2, bed available anytime. Julissa made aware to continue Nitrofurantion till 12/25/16 per MD order. Julissa requested nurse to make RN aware when report is given. SG Morgan made aware. Called [facility] [phone] spoke with Qamar chandra S transport picker packer 5:30pm. Placed transportation packet in nurses station.
[2016-12-18] MEDS ORDERED: MAG-AL HYDROX/SIMETH 30 ML UDC PO PRN (12:45)
[2016-12-18] MEDS ORDERED: metroNIDAZOLE 500 mg/NS 100 ML IV SCH (14:00)
--- NOTE | 2016-12-18 15:09 | NUR ---
PHYSICAL THERAPY CO-SIGN The Physical Therapy Progress Notes documented by Nurses Superintendent have been reviewed. I CONCUR W/BUILDING AND GROUNDS SUPERVISOR NOTE; TO ENCOURAGE Pt TO PARTICIPATE IN OOB ACTIVITY Reviewed/Co-Signed by: Jesi German PT Documentation Done by: ILAN MTZ BUILDING AND GROUNDS SUPERVISOR Addendum: 12/18/16 at 1510 by Jesi German PT Amended: Links added.
--- NOTE | 2016-12-18 15:09 | NUR ---
PHYSICAL THERAPY CO-SIGN The Physical Therapy Progress Notes documented by Crew Leader have been reviewed. I CONCUR W/JUNIOR BUYER NOTE; CONT PER TX PLAN Reviewed/Co-Signed by: Jesi German PT Documentation Done by: ILAN MTZ JUNIOR BUYER Addendum: 12/18/16 at 1510 by Jesi German PT Amended: Links added.
[2016-12-18 15:41] VITALS: BP 128/65; PULSE 78; RESP 17; TEMP 97.2; O2SAT 99
[2016-12-18 16:00] VITALS: BP 137/79; PULSE 80; RESP 17; TEMP 99.5; O2SAT 96
--- NOTE | 2016-12-18 16:40 | NUR ---
IV COMPLAIN OF PAIN ON THE IV SITE AFTER IV ANTIBIOTIC GIVEN. IV REMOVED.
--- NOTE | 2016-12-18 17:55 | NUR ---
DISCHARGE D/C PT BACK TO [facility] VIA AMBULANCE. PT AWAKE, ALERT AND ORIENTED. COMPLAIN OF PAIN. PT NO MORE IV ACCESS AT THIS TIME. ARM BAND REMOVED.NO DISTRESS NOTED. ALL BELONGINGS SEND WITH PT. REPORT GIVEN.
[2016-12-18] MEDS ORDERED: SULFAMETHOXAZOLE/TRIMETHOPR DS 1 TABLET PO SCH (21:00)
== END 2016-12-18 17:52 | DRG 463 ==
LOC: SED 01:11 → SMU 03:37
PROVIDERS: ADMIT General Practice; ATTEND General Practice
DX: N39.0 Urinary tract infection, site not specified (principal); E44.0 Moderate protein-calorie malnutrition; Z68.41 Body mass index [BMI] 40.0-44.9, adult; N32.81 Overactive bladder; F11.20 Opioid dependence, uncomplicated; E87.1 Hypo-osmolality and hyponatremia; B95.62 Methicillin resistant Staphylococcus aureus infection as the cause of diseases classified elsewhere; D63.8 Anemia in other chronic diseases classified elsewhere; C51.0 Malignant neoplasm of labium majus; E66.01 Morbid (severe) obesity due to excess calories; M47.816 Spondylosis without myelopathy or radiculopathy, lumbar region; G89.4 Chronic pain syndrome; B96.20 Unspecified Escherichia coli [E. coli] as the cause of diseases classified elsewhere; N76.0 Acute vaginitis; F32.9 Major depressive disorder, single episode, unspecified; F41.9 Anxiety disorder, unspecified; F29 Unspecified psychosis not due to a substance or known physiological condition; M54.5 Low back pain; Z88.0 Allergy status to penicillin; Z88.6 Allergy status to analgesic agent; Z88.1 Allergy status to other antibiotic agents; Z91.041 Radiographic dye allergy status; Z79.82 Long term (current) use of aspirin; Z79.899 Other long term (current) drug therapy; Z90.710 Acquired absence of both cervix and uterus
CPT/HCPCS: 36415; 80048; 80053; 80202-TC; 81000-TC; 83735-TC; 85025; 87040-TC; 87070-TC; 87081; 87086; 87186-TC; 96365; 96375; 97110-GP; 97530-GP; 99285; J0696; J1170; J1644; J1940; J2060; J2270; J2405; J3370; J3490; J7030; J7050; J7060